=== PATIENT | female | born 1960 | race Caucasian/White ===

== ENCOUNTER 2017-05-12 16:18 | Emergency (ER) | payer OTHER ==
[~2017-05-12] VITALS: Ht 175.3 cm; Wt 110.9 kg
[~2017-05-12 16:18] MED LIST: ASPEC325 PO; BUPR-79 PO; CYAN100048 PO; DOCU1CAP60 PO; FIBER PO; FRS/40 PO; PANT1TAB48 PO; PRM9 PO
[2017-05-12 16:21] VITALS: TEMP 36.6; Ht 175.3 cm; Wt 110.9 kg
--- NOTE | 2017-05-12 17:39 | DIAGNOSTIC IMAGING REPORT ---
RIGHT SHOULDER MIN 2 VIEWS ROUTINE HISTORY: 57 years-old Female acute right shoulder pain. COMPARISON: Chest radiographs 12/31/2013 TECHNIQUE: 3 views of the right shoulder FINDINGS: Moderate AC joint degenerative changes are present. Mild glenohumeral osteoarthritis also noted. Subcortical cystic changes and mild spurring involves the greater tuberosity. Bones are mildly demineralized without acute fracture or dislocation. Imaged right lung wood are clear. IMPRESSION: 1. No acute fracture or dislocation. 2. Moderate AC joint and mild glenohumeral osteoarthritis. The above report was generated using voice recognition software. It may contain grammatical, syntax or spelling errors. Electronically signed by: Abdirizak Ludwig M.D. 05/12/2017 5:37 PM Dictated Date/Time: 05/12/2017 5:36 PM
--- NOTE | 2017-05-12 17:41 | DIAGNOSTIC IMAGING REPORT ---
C-SPINE ROUTINE 4 OR 5 VIEWS HISTORY: 57 years-old Female RIGHT CERVICAL RADICULOPATHY COMPARISON: None available TECHNIQUE: 5 views of the cervical spine. FINDINGS: 7 nonrib-bearing cervical type vertebral segments are present. There is mild intervertebral disc space narrowing posteriorly at C4-C5 and C5-C6 along with uncovertebral spurring and mild to moderate facet arthropathy. These changes result in mild bony foraminal narrowing bilaterally at C5-C6. The odontoid process and lateral pillars of C1 are intact. The lung apices are clear. No prevertebral soft tissue swelling or opaque foreign body. IMPRESSION: 1. No acute fracture or subluxation of the cervical spine. 2. Mild intervertebral disc space narrowing with uncovertebral spurring noted at C4-C5 and C5-C6. Multilevel dqbk-kr-cvjykoyj facet arthropathy. 3. Degenerative changes at C5-C6 result in mild bony neuroforaminal stenosis bilaterally. The above report was generated using voice recognition software. It may contain grammatical, syntax or spelling errors. Electronically signed by: Abdirizak Ludwig M.D. 05/12/2017 5:40 PM Dictated Date/Time: 05/12/2017 5:38 PM
[2017-05-12] MEDS ORDERED: ZNTT/150 PO (17:59)
[2017-05-12] MEDS ORDERED: MISCCAP80 PO (17:59)
[2017-05-12] MEDS ORDERED: PRM/625 PO (17:59)
[2017-05-12] MEDS ORDERED: ASPI81TA28 PO (17:59)
[2017-05-12] MEDS ORDERED: ADVIN25/60 INH (17:59)
[2017-05-12] MEDS ORDERED: WLLSR150 PO (17:59)
[2017-05-12] MEDS ORDERED: ETOD500T95 PO (17:59)
[2017-05-12] MEDS ORDERED: CYCL10TA6 PO (17:59)
[2017-05-12] MEDS ORDERED: PRVHFAIN INH (17:59)
[2017-05-12] MEDS ORDERED: CYAN1SUB6 SL (18:02)
[2017-05-12] MEDS ORDERED: HYDR-5688 PO (18:25)
[2017-05-12] MEDS ORDERED: METH4PAK PO (18:25)
--- NOTE | 2017-05-12 18:27 | EMERGENCY ROOM VISIT NOTE ---
ED Visit Note First contact with patient: 16:25 CHIEF COMPLAINT: Right arm pain 2-3 days History of present illness: Patient is a [id number] 57-year-old white female who presents to the emergency department for evaluation of right arm pain. She states that the pain started in her right upper arm as a deep, aching "burning" sensation. She describes it as feeling like she was punched in the upper arm. The pain has begun to radiate towards the right side of her neck, and down into her hand. She applied heat to the area, and is on etodolac chronically for arthritis, she did not take any additional medications for her discomfort. She denies any numbness, tingling, or paresthesias in the arm and, but does state that she feels a little bit weak. She admits she had a hard time opening a jar the other day. She denies any trauma to the area, no heavy lifting or unusual activity prior to the onset of her symptoms. The pain is constant and unrelated to position changes. She denies any recent injections, blood draws or IV access in the right arm. She denies noticing any swelling or discoloration. She rates her discomfort a 7/10 presently. She does not have any associated chest pain, shortness of breath, back pain or palpitations. She has no symptoms in the left arm. REVIEW OF SYSTEMS: Review of systems as per HPI. All other systems reviewed were negative. 10 systems reviewed. PMH: Electronic medical records are reviewed and summarized as above/below. See Problem List. SOCIAL HISTORY: Patient lives at home. Nonsmoker. She is a housewife. PHYSICAL EXAM: Vital Signs: Reviewed Nurse's notes. MENTAL STATUS: Patient is a pleasant, well-appearing 57-year-old white female who is awake and alert and in no acute distress. HEENT: Normocephalic, atraumatic. Pupils equal, round, reactive to light and accommodation. EOMs intact without nystagmus. Sclera are anicteric. Tympanic membranes intact, with normal landmarks. External canals are clear. Oral and nasopharynx are clear. Mucous membranes are moist. NECK: The patient has no discomfort to palpation over the spinous processes of the cervical or the upper thoracic spine. No reproducible paraspinous muscle tenderness. She does have some point tenderness in the midportion of the right trapezius. Full cervical spine range of motion without discomfort. CHEST: Non-tender, symmetrical, no retractions. HEART: Regularly irregular rhythm. LUNGS: Clear to auscultation. MUSCULOSKELETAL: Examination of the right upper extremity does not demonstrate any ecchymosis, soft tissue swelling or erythema. There is no reproducible tenderness on palpation of the musculature or soft tissue of the upper arm. She does not have the pain really proximal biceps tendon or the rotator cuff insertion. She has full shoulder range of motion, and 5/5 strength. Elbow is nontender to palpation. Elbow range of motion is full. Distal pulses are easily palpable. NEUROLOGICAL: Alert, oriented, and cooperative. Cranial nerves, sensation and strength grossly intact. Upper extremity DTRs are equal and symmetrical bilaterally. EMERGENCY DEPARTMENT COURSE: The patient was seen and evaluated as above. She reports pain in her right upper arm that radiates into her right neck and down her arm, with some subjective weakness. Symptoms appear more consistent with either shoulder or C-spine pathology. Cervical spine and right shoulder x-rays were obtained. Shoulder x-ray noted minor arthritic changes, she has moderate degenerative changes noted throughout the cervical spine, which I suspect is the source of her symptoms. She does not have any erythema, increased warmth or induration to suspect an infectious process such as cellulitis. History does not appear consistent with DVT or superficial thrombophlebitis. Pain is more consistent with a musculoskeletal etiology, not felt to be cardiac or pulmonary in nature. Patient is on NSAIDs chronically for her generalized arthritis. She was agreeable to a short course of an oral steroid and was placed on a Medrol Dosepak. She will stop her he told back while taking the Medrol Dosepak. She was also given prescription for [place] that she can use. She has Flexeril at home. She is established with [facility] and is actually seen pain management there, Dr. James, for her lumbar spine in the past. She may require further workup including a C-spine MRI. She was advised to follow-up with her PCP or with [facility] for further care and evaluation. Medication reconciliation: I attest that I have personally reviewed the patient' s current medication list. Blood pressure screening : Patient was found to have normal blood pressure on screening and does not require follow-up. Patient was reviewed in the [facility] Prescription Drug Monitoring Program, and there were no red flags noted. C-SPINE ROUTINE 4 OR 5 VIEWS HISTORY: 57 years-old Female RIGHT CERVICAL RADICULOPATHY COMPARISON: None available TECHNIQUE: 5 views of the cervical spine. FINDINGS: 7 nonrib-bearing cervical type vertebral segments are present. There is mild intervertebral disc space narrowing posteriorly at C4-C5 and C5-C6 along with uncovertebral spurring and mild to moderate facet arthropathy. These changes result in mild bony foraminal narrowing bilaterally at C5-C6. The odontoid process and lateral pillars of C1 are intact. The lung apices are clear. No prevertebral soft tissue swelling or opaque foreign body. IMPRESSION: 1. No acute fracture or subluxation of the cervical spine. 2. Mild intervertebral disc space narrowing with uncovertebral spurring noted at C4-C5 and C5-C6. Multilevel gasy-qy-vrpxfvav facet arthropathy. 3. Degenerative changes at C5-C6 result in mild bony neuroforaminal stenosis bilaterally. RIGHT SHOULDER MIN 2 VIEWS ROUTINE HISTORY: 57 years-old Female acute right shoulder pain. COMPARISON: Chest radiographs 12/31/2013 TECHNIQUE: 3 views of the right shoulder FINDINGS: Moderate AC joint degenerative changes are present. Mild glenohumeral osteoarthritis also noted. Subcortical cystic changes and mild spurring involves the greater tuberosity. Bones are mildly demineralized without acute fracture or dislocation. Imaged right lung wood are clear. IMPRESSION: 1. No acute fracture or dislocation. 2. Moderate AC joint and mild glenohumeral osteoarthritis. Problem List Medical Problems: (1) Anxiety State Nos Status: Chronic (2) Esophageal Reflux Status: Chronic (3) Osteoarthritis Status: Chronic (4) Right knee DJD Status: Resolved Surgical Problems: (1) History of cholecystectomy Status: Resolved (2) History of hysterectomy Status: Resolved (3) History of lumpectomy of both breasts Status: Resolved (4) History of total knee arthroplasty Status: Resolved Current/Historical Medications Scheduled Aspirin (Aspirin Ec), 81 MG PO DAILY Bupropion HCl (Bupropion HCl Sr), 150 MG PO BID Cyanocobalamin (B-12), 2,500 MCG SL DAILY Estrogens, Conjugated (Premarin), 0.625 MG PO DAILY Etodolac (Etodolac), 500 MG PO BID Fluticasone Prop/Salmeterol (Advair Diskus 250/50 60 Dose), 1 PUFF INH BID Furosemide (Lasix), 40 MG PO QAM Methylprednisolone (Medrol Dosepak), 0 PO DAILY Pantoprazole (Protonix), 40 MG PO QAM Probiotic Product (Probiotic), 1 CAP PO DAILY Ranitidine (Zantac), 150 MG PO HS Scheduled PRN Albuterol (Ventolin Hfa), 2 PUFFS INH Q4H PRN for SOB/Wheezing Cyclobenzaprine Hcl (Flexeril), 10 MG PO TID PRN for Muscle Spasm Hydrocodone/Acetaminophen 5MG/325MG ([place] 5MG/325MG), 1-2 TABLETS PO Q4 PRN for Pain Allergies Coded Allergies: SHELLFISH (Unverified Allergy, Mild, FLUSHING, 12/31/13) Eggs or Egg-derived Products (Unverified Adverse Reaction, Mild, FLUSHING , can eat eggs--no reaction per pt, 01/27/14) Vital Signs Date Time Temp Pulse Resp B/P (MAP) Pulse Ox O2 Delivery O2 Flow Rate FiO2 05/12/17 18:44 59 17 129/91 97 05/12/17 17:49 59 17 129/91 97 Room Air 05/12/17 16:21 36.6 73 18 154/99 100 Room Air Medications Administered Medications (Trade) Dose Ordered Sig/Otilio Route Start Time Stop Time Status Last Admin Dose Admin Acetaminophen/ Hydrocodone Bitart ([place] 5/325mg Home Pack) 1 homepack UD ONCE PO 05/12/17 18:30 05/12/17 18:31 DC 05/12/17 18:41 1 HOMEPACK Departure Information Impression Primary Impression: Degenerative disc disease, cervical Additional Impression: Right cervical radiculopathy Prescriptions Methylprednisolone (MEDROL DOSEPAK) 4 Mg Toi 0 PO DAILY, #1 PKT Once daily as directed. Prov: Cha Rodas PA 05/12/17 Hydrocodone/Acetaminophen 5MG/325MG ([place] 5MG/325MG) Tab 1-2 TABLETS PO Q4 Y for Pain, #20 TAB For Initial Treatment Prov: Cha Rodas PA 05/12/17 Referrals Kenneth Rhodes D.O. (PCP) Patient Instructions My [facility] Additional Instructions Medrol Dosepak: Once daily until the prescription is finished. It is best to take this earlier in the day as some patients note occasional difficulty falling asleep when taken in the late evening. Stop etodolac while taking the Medrol Dosepak. Hydrocodone/Acetaminophen ([place]) 5/325 mg: Take 1-2 pills every four hours for breakthrough pain. Avoid alcohol, operating machinery or dangerous equipment, working on ladders or roofs, DRIVING, or situations where being under the influence may be dangerous. It is recommended to use an yxdo-fon-pfxayjn stool softener such as Colace, 100mg twice daily while taking this medication to avoid constipation. May use your Flexeril as needed. Rest and avoid heavy lifting until your symptoms resolve and then gradually return to full activity. A good rule of thumb is if it hurts you to perform a certain activity, then it should be avoided until you are healthy again. A heating pad, warm compresses, or a hot shower may help with tight muscles and can be done several times a day as needed. Continue current medications. Return to the ER immediately for any numbness, tingling, severe pain, loss of control of your bowels or bladder, inability to walk, or as needed. Follow up with your primary care physician or orthopedics for further care and evaluation of your symptoms. Problem Qualifiers
[2017-05-12] MEDS ORDERED: NORCO 5/325MG HOME PACK PO ONE (18:30)
[2017-05-12 18:44] VITALS: BP 129/91; PULSE 59; O2SAT 97
== END 2017-05-12 18:44 | disposition home or self-care (01) ==
LOC: C.EDB 16:20 → C.EDA 18:44
DX: M50.30 Other cervical disc degeneration, unspecified cervical region (principal); M54.12 Radiculopathy, cervical region; F41.9 Anxiety disorder, unspecified; K21.9 Gastro-esophageal reflux disease without esophagitis; M19.90 Unspecified osteoarthritis, unspecified site; Z96.651 Presence of right artificial knee joint; Z79.82 Long term (current) use of aspirin; Z79.899 Other long term (current) drug therapy

== ENCOUNTER 2017-05-16 16:14 | Emergency (ER) | payer OTHER ==
[~2017-05-16] VITALS: Ht 175.3 cm; Wt 111.0 kg
[~2017-05-16 16:14] MED LIST changes: +ADVIN25/60 INH; -ASPEC325 PO; +ASPI81TA28 PO; -BUPR-79 PO; -CYAN100048 PO; +CYAN1SUB6 SL; +CYCL10TA6 PO; -DOCU1CAP60 PO; +ETOD500T95 PO; -FIBER PO; +HYDR-5688 PO; +METH4PAK PO; +MISCCAP80 PO; +PRM/625 PO; -PRM9 PO; +PRVHFAIN INH; +WLLSR150 PO; +ZNTT/150 PO
[2017-05-16 16:27] VITALS: TEMP 36.7; Ht 175.3 cm; Wt 111.0 kg
[2017-05-16] MEDS ORDERED: HYDR-5688 PO (17:21)
[2017-05-16 17:31] VITALS: BP 145/96; PULSE 73; O2SAT 96
--- NOTE | 2017-05-16 18:08 | EMERGENCY ROOM VISIT NOTE ---
History First contact with patient: 16:37 Chief Complaint: ARM PAIN Stated Complaint: RT ARM AND SHOULDER PAIN History of Present Illness The patient is a 57 year old female who presents to the Emergency Room for a second opinion related to a rash extending from her right upper shoulder down her right arm. She was seen by her PCP earlier today and diagnosed with herpes zoster. She was provided a prescription for famciclovir. The patient reports that she was in the emergency department 4 days ago and diagnosed with a cervical radiculopathy. She reports that her was putting a lot of capsacin cream on the shoulder and arm, and wanted to make sure that it was not a reaction or burn from the cream. The patient reports that the pain is significant. She only has a few pain medications left from her prescription from the emergency department. Her family doctor did not provide her a prescription for pain medicine. She does report a childhood history of chickenpox. She denies any paresthesias or numbness of the right hand or fingers. She currently rates her discomfort a 9 out of 10. Review of Systems 10 system review was performed and was negative except for pertinent positives and negatives as indicated in history of present illness Past Medical/Surgical History Medical Problems: (1) Anxiety State Nos (2) Esophageal Reflux (3) Osteoarthritis (4) Right knee DJD Surgical Problems: (1) History of cholecystectomy (2) History of hysterectomy (3) History of lumpectomy of both breasts (4) History of total knee arthroplasty Family History Unremarkable Social History Smoking Status: Never Smoker Alcohol Use: none Marital Status: Housing Status: lives with family Occupation Status: employed Current/Historical Medications Scheduled Aspirin (Aspirin Ec), 81 MG PO DAILY Bupropion HCl (Bupropion HCl Sr), 150 MG PO BID Cyanocobalamin (B-12), 2,500 MCG SL DAILY Estrogens, Conjugated (Premarin), 0.625 MG PO DAILY Etodolac (Etodolac), 500 MG PO BID Fluticasone Prop/Salmeterol (Advair Diskus 250/50 60 Dose), 1 PUFF INH BID Furosemide (Lasix), 40 MG PO QAM Methylprednisolone (Medrol Dosepak), 0 PO DAILY Pantoprazole (Protonix), 40 MG PO QAM Probiotic Product (Probiotic), 1 CAP PO DAILY Ranitidine (Zantac), 150 MG PO HS Scheduled PRN Albuterol (Ventolin Hfa), 2 PUFFS INH Q4H PRN for SOB/Wheezing Cyclobenzaprine Hcl (Flexeril), 10 MG PO TID PRN for Muscle Spasm Hydrocodone/Acetaminophen 5MG/325MG ([place] 5MG/325MG), 1-2 TABLETS PO Q4 PRN for Pain Hydrocodone/Acetaminophen 5MG/325MG ([place] 5MG/325MG), 1-2 TABLET PO Q4H PRN for Pain Physical Exam Vital Signs Date Time Temp Pulse Resp B/P (MAP) Pulse Ox O2 Delivery O2 Flow Rate FiO2 05/16/17 17:31 73 16 145/96 96 05/16/17 16:27 36.7 73 16 145/96 96 Pain Rating (0-10): 0 Physical Exam CONSTITUTIONAL: Healthy and well nourished. Alert and oriented X 3 with positive affect. Patient does not appear in any obvious distress. HEENT: Normocephalic, atraumatic. Pupils equal, round and reactive. No facial edema or erythema noted. NECK: Patient has mild right neck and shoulder discomfort with left lateral gaze. No nuchal rigidity or erythema of the neck area and RESPIRATORY: Clear to auscultation bilaterally with no wheezing, crackles, rhonchi or stridor. CARDIOVASCULAR: Regular rate and rhythm with no murmurs, rubs or gallops. GASTROINTESTINAL: Bowel sounds present in all quadrants. Nontender to palpation. MUSCULOSKELETAL: Patient has full range of motion of the right shoulder, elbow and wrist without discomfort. Distal pulses are intact. INTEGUMENTARY: The patient has a grouped erythematous and mildly vesicular lesion from the right upper shoulder region, down the anterolateral upper arm and anterior forearm. There is no induration. NEUROLOGIC: No focal neurologic deficits noted. Right hand and fingers are sensory intact. Medical Decision & Procedures ED Course Patient history and physical exam were performed. Nurse's notes were reviewed. Vital signs were reviewed, showing an elevated blood pressure 145/96. I also reviewed documentation from the patient's visit 5 days ago. The patient was referred to Dr. James for further reevaluation of possible right cervical radiculitis. It is now apparent that the patient's pain was likely being caused by herpes zoster. I explained to the patient that clinical exam findings are consistent with herpes zoster. She was instructed to take the famciclovir as prescribed by her PCP. It is also noted that she was provided a prescription on Saturday for a corticosteroid, which she may also take. The patient was provided an additional prescription for [place] as needed for pain. The patient was advised that she would need to discuss further pain management with her PCP. The patient reports that she does have an appointment rescheduled in 7 days. An educational handout was provided. She was instructed to avoid anyone with immunocompromise or . The patient was happy with plan of care, and voiced understanding of all discharge instructions , rating her pain a 5 out of 10 at the conclusion of my exam. Medical Decision Impression Primary Impression: Herpes zoster Departure Information Dispostion Home / Self-Care Condition GOOD Prescriptions Hydrocodone/Acetaminophen 5MG/325MG ([place] 5MG/325MG) Tab 1-2 TABLET PO Q4H Y for Pain, #36 TAB For Initial Treatment Prov: Cody Weems PA 05/16/17 Forms HOME CARE DOCUMENTATION FORM, IMPORTANT VISIT INFORMATION Patient Instructions Shingles Herpes Zoster, My [facility] Additional Instructions We agree with your PCP's assessment of shingles. Take the famciclovir as prescribed. Continue with hydrocodone as needed for pain. Avoid anyone with a weakened immune system or women. Follow-up with your family doctor as needed for further pain management. Problem Qualifiers Primary Impression: Herpes zoster Herpes zoster complications: with other complications Qualified Codes: B02.8 - Zoster with other complications
== END 2017-05-16 17:31 | disposition home or self-care (01) ==
LOC: C.EDB 16:15 → C.EDD 17:31
DX: B02.8 Zoster with other complications (principal); M19.90 Unspecified osteoarthritis, unspecified site; F41.9 Anxiety disorder, unspecified; K21.9 Gastro-esophageal reflux disease without esophagitis; Z79.82 Long term (current) use of aspirin; Z79.899 Other long term (current) drug therapy

== ENCOUNTER 2020-06-22 08:10 | Observation (INO) ==
--- NOTE | 2020-06-07 15:30 | PAT Medication Instructions ---
Medication Instructions Date of Service June 07, 2020 Home Medications albuterol sulfate [Ventolin HFA] 2 puff INHALATION 6XD PRN aspirin 81 mg PO QAM bupropion HCl 150 mg PO BID celecoxib [Celebrex] 200 mg PO BID cholecalciferol (vitamin D3) [Vitamin D3] 125 mcg PO QAM conjugated estrogens [Premarin] 0.625 mg PO QAM cyanocobalamin (vitamin B-12) [Vitamin B-12] 500 mcg PO QAM famotidine 40 mg PO HS lactobacillus combination no.4 [Probiotic] 3,000 mmu cells PO QAM pantoprazole 40 mg PO QAM torsemide 20 mg PO QAM ASK your surgeon for instructions celecoxib [Celebrex] 200 mg PO BID DO NOT take the morning of surgery cholecalciferol (vitamin D3) [Vitamin D3] 125 mcg PO QAM conjugated estrogens [Premarin] 0.625 mg PO QAM (unless surgeon instructs that med needs held longer) cyanocobalamin (vitamin B-12) [Vitamin B-12] 500 mcg PO QAM lactobacillus combination no.4 [Probiotic] 3,000 mmu cells PO QAM torsemide 20 mg PO QAM Take morning of surgery With a small sip of water, OTHERWISE NOTHING TO EAT OR DRINK AFTER MIDNIGHT: albuterol sulfate [Ventolin HFA] 2 puff INHALATION 6XD PRN (use if needed; please bring with you to hospital day of surgery if possible) aspirin 81 mg PO QAM bupropion HCl 150 mg PO BID pantoprazole 40 mg PO QAM Take evening before surgery albuterol sulfate [Ventolin HFA] 2 puff INHALATION 6XD PRN (if needed) bupropion HCl 150 mg PO BID famotidine 40 mg PO HS Other Notes If you have any questions please call us at [phone] or [phone] or [phone] or [phone]
--- NOTE | 2020-06-08 12:05 | Anesthesiology Consultation ---
Date of Service June 08, 2020 Assessment & Plan (1) Encounter for pre-operative examination: COVID Status: As of 06/08 assessment, patient denies travel to endemic area, known exposure/sick contacts, or symptoms of COVID19. Patient instructed that they and their household members must follow strict social distancing guidelines, wear a mask in public and avoid travel for 14 days prior to surgery. Preoperative COVID19 testing to be completed prior to surgery per surgeon's a rrangements. Patient made aware to self-isolate as much as possible between COVID testing and surgery. Chart Review Chart Review: Acceptable Risk for Surgery (pending surgeon ordered PCP and cardio clearances (also to have echo 06/10 per pt)) and Patient seen in Pre Admission Testing Teaching & Discussion Instructed NPO after midnight before surgery, except medications with 15 cc of water. Medication instructions provided according to the PAT guidelines. History Surgery Operation Date: 06/22/20 12:40 Proposed Procedures p Left Total Knee Arthroplasty - Torito Mendoza DO Height/Weight Height: 5 ft 9 in Weight: 107.5 kg Allergies Allergy/AdvReac Type Severity Reaction Status Date / Time meloxicam [From Mobic] Allergy Mild retain Verified 06/07/20 07:37 fluid swelling shellfish derived Allergy Mild FLUSHING Unverified 06/07/20 07:34 Egg Derived AdvReac Mild FLUSHING, Unverified 06/07/20 07:34 can eat eggs--no reaction per pt elderberry pills Allergy Mild made her Uncoded 06/07/20 07:37 "go crazy" pain pill Allergy Mild she cant Uncoded 06/07/20 07:37 remember name Medications Home Medications Medication Instructions Recorded Confirmed Last Taken albuterol sulfate [Ventolin HFA] 2 puff INHALATION 6XD PRN 06/07/20 06/07/20 Unknown aspirin 81 mg PO QAM 06/07/20 06/07/20 Unknown bupropion HCl 150 mg PO BID 06/07/20 06/07/20 Unknown celecoxib [Celebrex] 200 mg PO BID 06/07/20 06/07/20 Unknown cholecalciferol (vitamin D3) 125 mcg PO QAM 06/07/20 06/07/20 Unknown [Vitamin D3] conjugated estrogens [Premarin] 0.625 mg PO QAM 06/07/20 06/07/20 Unknown cyanocobalamin (vitamin B-12) 500 mcg PO QAM 06/07/20 06/07/20 Unknown [Vitamin B-12] famotidine 40 mg PO HS 06/07/20 06/07/20 Unknown lactobacillus combination no.4 3,000 mmu cells PO QAM 06/07/20 06/07/20 Unknown [Probiotic] pantoprazole 40 mg PO QAM 06/07/20 06/07/20 Unknown torsemide 20 mg PO QAM 06/07/20 06/07/20 Unknown Past Medical History Medical History (Updated 06/08/20 @ 12:14 by Ranjith Pagan) Anxiety Asthma Bicuspid aortic valve Monitored yearly by Dr. Stone Diverticular disease GERD (gastroesophageal reflux disease) Osteoarthritis PONV (postoperative nausea and vomiting) Exercise / Class Metabolic Activity II 4-5 Yardwork/Stairs/Walk up hill (NO CP or OSB with 1 FOS, just slow bc of knee pain) Past Surgical History Surgical History History of lumpectomy of both breasts History of total right knee replacement Hx of arthroscopy of shoulder right and left Hx of colonoscopy Hx of foot surgery right foot tendon repair Hx of hand surgery right and left with tendons Hx of hemorrhoidectomy Hx of hysterectomy Hx of left inguinal hernia repair Past Anesthesia History No Hx of Anesthesia Complications and No Family Hx of Anesthesia Complications Egg allergy noted, "flushing" but patient reports she eats eggs anyway, and propofol was used during 2013 TKA. History of PONV No Hx of Motion Sickness and History of PONV (occasional nausea) Social History Smoking Status: Never smoker Do You Dip or Chew Tobacco: No Hx Alcohol Use: No Hx Substance Use: No substance use type: does not use Review of Systems Pt denies any recent chest pain, shortness of breath, palpitations, cough, fever, URI, or acid reflux (controlled with meds). Physical Exam Vital Signs BP: 143/79 P: 67bpm SPO2: 96% RA T: 98.4 F R: 16 ENMT Mouth: + dentures (upper only) and + edentulous Thyromental Distance: < 3.5 Finger Breadths (3) Mallampati Class: I Neck normal visual inspection; neck extension not limited Respiratory normal respiratory effort Auscultation: lungs clear to auscultation bilaterally Cardiovascular Rate/Rhythm: regular rate and regular rhythm Heart Sounds: no murmur Extremities: + edema (B/L nonpitting) Testing Laboratory Results 06/08/20 12:18 06/08/20 12:18 PT 10.4 Seconds (9.0-12.0) 06/08/20 12:18 INR 1.0 (0.9-1.1) 06/08/20 12:18 APTT 25.8 Seconds (21.0-31.0) 06/08/20 12:18 Hemoglobin A1c 5.2 % (4.5-5.6) 06/08/20 12:18 Urine Color Yellow 06/08/20 12:18 Urine Appearance Clear (Clear) 06/08/20 12:18 Urine pH 5.5 (4.5-7.5) 06/08/20 12:18 Ur Specific [place] 1.014 (1.000-1.030) 06/08/20 12:18 Urine Protein Negative (Negative) 06/08/20 12:18 Urine Glucose (UA) Negative (Negative) 06/08/20 12:18 Urine Ketones Negative (Negative) 06/08/20 12:18 Urine Nitrite Negative (Negative) 06/08/20 12:18 Ur Leukocyte Esterase Negative (Negative) 06/08/20 12:18 Blood Type O Positive 06/08/20 12:18 Antibody Screen NEGATIVE 06/08/20 12:18 *Surgeons office flagged regarding low white count Electrocardiogram Date: 04/29/20 Findings: + SB @ (57bpm) Low voltage. Chest X-Ray Date: 06/08/20 Findings: + NAD Echocardiogram Date: 02/11/19 EF: 55-60% Normal LV size and systolic function. Normal right ventricular size and function. Bicuspid aortic valve with mild regurgitation. The aortic valve area is 2.5 cm and the mean gradient is 4 mmHg. No tricuspid regurgitant spectral velocity was obtainable for estimating PASP. Mildly dilated aortic root. There is impaired relaxation pattern consistent with diastolic dysfunction grade 1.
--- NOTE | 2020-06-08 12:47 | XRay Report ---
XR chest Pre-admission PA/Lat CLINICAL HISTORY: Preoperative evaluation. COMPARISON STUDY: Chest radiograph December 31, 2013. FINDINGS: Lung volumes are at the upper limits of normal. Lungs are clear. There is no pneumothorax o r pleural effusion. Cardiac size is normal. Mediastinal contours are normal. There is no evidence for pulmonary edema. Incidental note is made of an azygos fissure. IMPRESSION: No acute cardiopulmonary findings. ACT 112: Negative or not required by law. Electronically signed by: Les Landaverde M.D. 06/08/2020 12:45 PM
[2020-06-08 12:53] LABS: Hematocrit (blood only) 42.7 % (37-47); Hemoglobin 13.6 g/dL (12.0-16.0); Mean Corpuscular Hemoglobin 28.7 pg (25-34); Mean Corpuscular Hgb Conc 31.9 g/dL (32-36); Mean Corpuscular Volume 90.1 fL (80-100); RDW Standard Deviation 47.6 fL (36.4-46.3); Red Blood Count 4.74 M/uL (4.2-5.4)
[2020-06-08 12:54] LABS: Basophils # (auto) 0.05 K/uL (0-0.2); Basophils % (auto) 1.3 %; Eosinophils # (auto) 0.11 K/uL (0-0.5); Eosinophils % (auto) 2.9 %; Immature Granulocytes # (auto) 0.01 K/uL (0.00-0.02); Immature Granulocytes % (auto) 0.3 %; Lymphocytes # (auto) 1.09 K/uL (1.2-3.4); Lymphocytes % (auto) 28.7 %; Mean Platelet Volume 10.7 fL (7.4-10.4); Monocytes # (auto) 0.43 K/uL (0.11-0.59); Monocytes % (auto) 11.3 %; Neutrophils # (auto) 2.11 K/uL (1.4-6.5); Neutrophils % (auto) 55.5 %; Platelet Count 197 K/uL (130-400); RDW Coefficient of Variation 14.5 % (11.5-14.5)
[2020-06-08 12:56] LABS: Appearance Urine Clear (Clear); Bilirubin Urine Negative (Negative); Blood Urine Negative (Negative); Color Urine Yellow; Glucose Urine UA Negative (Negative); Ketones Urine Negative (Negative); Leukocyte Esterase Urine Negative (Negative); Nitrite Urine Negative (Negative); Protein Urine Negative (Negative); Specific Gravity Urine 1.014 (1.000-1.030); Urobilinogen Urine Negative (Negative); pH Urine 5.5 (4.5-7.5)
[2020-06-08 13:09] LABS: Estimated Average Glucose 103 mg/dl; Hemoglobin A1C 5.2 % (4.5-5.6); Partial Thromboplastin Ratio 0.9; Partial Thromboplastin Time 25.8 Seconds (21.0-31.0); Prothrombin Time 10.4 Seconds (9.0-12.0)
[2020-06-08 14:19] LABS: Albumin Level 3.4 gm/dl (3.4-5.0); BUN Creatinine Ratio 14.8 (10-20); Calcium 9.2 mg/dl (8.5-10.1); Creatinine Clr Calc Pharmacy 73.2 ml/min; Est GFR (African American) 66.7; Est GFR (Non-African American) 57.5; Potassium 3.7 mmol/L (3.5-5.1)
--- NOTE | 2020-06-09 11:41 | History & Physical Report ---
Date of Service June 09, 2020 date of surgery: 06/22/20 procedure: Left Total Knee Arthroplasty Assessment & Plan (1) Arthritis of knee, left: She has continued pain in her left knee, has had previous cortisone injections as well as visco without relief. risks and benefits discussed today, she would like to proceed with a block left TKA at [facility]. The risks and benefits have been discussed including, but not limited to, risk of infection, nerve injury, stiffness, loss of motion, failure to improve, etc. Reasonable outcomes and options of treatment were discussed. An explanation of appropriate alternatives to the procedure that may be advantageous were discussed and their risks and benefits, as well as the risks and benefits of not proceeding with treatment. I offered to answer any additional inquiries concerning the treatment involved. All the patient's questions were answered. The patient is agreeable, understanding of the treatment plan and alternatives, and wishes to proceed with the treatment plan. History of Present Illness Chief Complaint: left knee pain Primary Care Provider: Kenneth Rhodes DO Gabbie is a 60 year old female who complains of left knee pain, presents for pre-op evaluation prior to a left total knee replacement by dr Mendoza at [facility]. She complains of pain and decreased range of motion in her left knee. she states that her symptoms occur constantly with intermittent worsening. Currently the patient states that the symptoms are moderate-severe. The pain is described as aching, sharp and throbbing. her symptoms are aggravated by ascending stairs, daily activities, first steps while awake walking. Prior NSAIDs include IBU, Aleve and Mobic, had adverse rxn to Mobic. she has been treated with previous cortisone and visco injections in the past without much relief. Allergies Allergy/AdvReac Type Severity Reaction Status Date / Time meloxicam [From Mobic] Allergy Mild retain Verified 06/07/20 07:37 fluid swelling shellfish derived Allergy Mild FLUSHING Unverified 06/07/20 07:34 Egg Derived AdvReac Mild FLUSHING, Unverified 06/07/20 07:34 can eat eggs--no reaction per pt elderberry pills Allergy Mild made her Uncoded 06/07/20 07:37 "go crazy" pain pill Allergy Mild she cant Uncoded 06/07/20 07:37 remember name Home Medications Home Medications Medication Instructions Recorded Confirmed Type albuterol sulfate [Ventolin HFA] 2 puff INHALATION 6XD PRN 06/07/20 06/07/20 History aspirin 81 mg PO QAM 06/07/20 06/07/20 History bupropion HCl 150 mg PO BID 06/07/20 06/07/20 History celecoxib [Celebrex] 200 mg PO BID 06/07/20 06/07/20 History cholecalciferol (vitamin D3) 125 mcg PO QAM 06/07/20 06/07/20 History [Vitamin D3] conjugated estrogens [Premarin] 0.625 mg PO QAM 06/07/20 06/07/20 History cyanocobalamin (vitamin B-12) 500 mcg PO QAM 06/07/20 06/07/20 History [Vitamin B-12] famotidine 40 mg PO HS 06/07/20 06/07/20 History lactobacillus combination no.4 3,000 mmu cells PO QAM 06/07/20 06/07/20 History [Probiotic] pantoprazole 40 mg PO QAM 06/07/20 06/07/20 History torsemide 20 mg PO QAM 06/07/20 06/07/20 History Past Med/Surg History Medical History Anxiety Asthma Bicuspid aortic valve Monitored yearly by Dr. Stone Diverticular disease GERD (gastroesophageal reflux disease) Osteoarthritis PONV (postoperative nausea and vomiting) Surgical History History of lumpectomy of both breasts History of total right knee replacement Hx of arthroscopy of shoulder right and left Hx of colonoscopy Hx of foot surgery right foot tendon repair Hx of hand surgery right and left with tendons Hx of hemorrhoidectomy Hx of hysterectomy Hx of left inguinal hernia repair Social History Smoking Status: Never smoker Second Hand Exposure: No; Do You Dip or Chew Tobacco: No; Tobacco Cessation Education Requested by Patient: No Hx Alcohol Use: No Hx Substance Use: No Preferred Language: Pashto Communication Ability: Effective Learning Support Resource Room Teacher Required: No Beliefs That Will Affect Care: None Current Living Situation: Spouse Other Information That Helps Us Care for You: No Feels Safe at Home: Yes Safety Concerns: Feels Safe At This Time Assistive Devices: Denture - Upper and Glasses Review of Systems Review of Systems: All systems reviewed & are unremarkable except as noted in HPI & below Constitutional: no fever, no chills and no sweats Respiratory: no cough and no dyspnea Cardiovascular: no chest pain, no dyspnea and no orthopnea Gastrointestinal: no abdominal pain, no nausea and no vomiting Musculoskeletal: as per Subjective / HPI Physical Exam Physical Exam: HT: 5ft 9in Wt: 107.5kg BP: 128/68 Constitutional: WD/WN, vitals as above no acute distress Respiratory: normal respiratory effort, lungs clear to auscultation no respiratory distress, no labored breathing and does not use accessory muscles Cardiovascular: RRR, no murmur, no edema Gastrointestinal (Abdomen): normal bowel sounds, soft, nontender, no hepatosplenomegaly Musculoskeletal: Knee: + knee abnormal to inspection (left knee), + effusion (+1 effusion), + limited ROM of knee (ROM 0/3/110), + knee ROM with crepitation, + joint line tenderness (medial joint line) and + Lottie's sign positive; no deformity, no skin erythema, no ecchymosis, no valgus laxity, no varus laxity, anterior drawer test negative, Fredy's sign negative and pivot shift test ne gative Results & Data Results & Data ([facility]) Laboratory Results Laboratory Results WBC 3.80 K/uL (4.8-10.8) L 06/08/20 12:18 RBC 4.74 M/uL (4.2-5.4) 06/08/20 12:18 Hgb 13.6 g/dL (12.0-16.0) 06/08/20 12:18 Hct 42.7 % (37-47) 06/08/20 12:18 MCV 90.1 fL (80-100) 06/08/20 12:18 MCH 28.7 pg (25-34) 06/08/20 12:18 MCHC 31.9 g/dL (32-36) L 06/08/20 12:18 RDW Std Deviation 47.6 fL (36.4-46.3) H 06/08/20 12:18 RDW Coeff of Rhett 14.5 % (11.5-14.5) 06/08/20 12:18 Plt Count 197 K/uL (130-400) 06/08/20 12:18 MPV 10.7 fL (7.4-10.4) H 06/08/20 12:18 Immature Gran % (Auto) 0.3 % 06/08/20 12:18 Neut % (Auto) 55.5 % 06/08/20 12:18 Lymph % (Auto) 28.7 % 06/08/20 12:18 Faulk % (Auto) 11.3 % 06/08/20 12:18 Eos % (Auto) 2.9 % 06/08/20 12:18 Baso % (Auto) 1.3 % 06/08/20 12:18 Neut # (Auto) 2.11 K/uL (1.4-6.5) 06/08/20 12:18 Lymph # (Auto) 1.09 K/uL (1.2-3.4) L 06/08/20 12:18 Faulk # (Auto) 0.43 K/uL (0.11-0.59) 06/08/20 12:18 Eos # (Auto) 0.11 K/uL (0-0.5) 06/08/20 12:18 Baso # (Auto) 0.05 K/uL (0-0.2) 06/08/20 12:18 Immature Gran # (Auto) 0.01 K/uL (0.00-0.02) 06/08/20 12:18 PT 10.4 Seconds (9.0-12.0) 06/08/20 12:18 INR 1.0 (0.9-1.1) 06/08/20 12:18 APTT 25.8 Seconds (21.0-31.0) 06/08/20 12:18 PTT Ratio 0.9 06/08/20 12:18 Sodium 141 mmol/L (136-145) 06/08/20 12:18 Potassium 3.7 mmol/L (3.5-5.1) 06/08/20 12:18 Chloride 105 mmol/L (98-107) 06/08/20 12:18 Carbon Dioxide 29 mmol/L (21-32) 06/08/20 12:18 Anion Gap 7.0 (3-11) 06/08/20 12:18 BUN 15 mg/dl (7-18) 06/08/20 12:18 Creatinine 1.04 mg/dl (0.6-1.2) 06/08/20 12:18 Est Cr Clr Drug Dosing 73.2 ml/min 06/08/20 12:18 Est GFR ( Amer) 66.7 06/08/20 12:18 Est GFR (Non-Af Amer) 57.5 06/08/20 12:18 BUN/Creatinine Ratio 14.8 (10-20) 06/08/20 12:18 Glucose 91 mg/dl (70-99) 06/08/20 12:18 Estimat Average Glucose 103 mg/dl 06/08/20 12:18 Hemoglobin A1c 5.2 % (4.5-5.6) 06/08/20 12:18 Calcium 9.2 mg/dl (8.5-10.1) 06/08/20 12:18 Albumin 3.4 gm/dl (3.4-5.0) 06/08/20 12:18 Urine Color Yellow 06/08/20 12:18 Urine Appearance Clear (Clear) 06/08/20 12:18 Urine pH 5.5 (4.5-7.5) 06/08/20 12:18 Ur Specific [place] 1.014 (1.000-1.030) 06/08/20 12:18 Urine Protein Negative (Negative) 06/08/20 12:18 Urine Glucose (UA) Negative (Negative) 06/08/20 12:18 Urine Ketones Negative (Negative) 06/08/20 12:18 Urine Blood Negative (Negative) 06/08/20 12:18 Urine Nitrite Negative (Negative) 06/08/20 12:18 Urine Bilirubin Negative (Negative) 06/08/20 12:18 Urine Urobilinogen Negative (Negative) 06/08/20 12:18 Ur Leukocyte Esterase Negative (Negative) 06/08/20 12:18 Blood Type O Positive 06/08/20 12:18 Antibody Screen NEGATIVE 06/08/20 12:18 Diagnostic Findings Left Knee X-ray: left knee series confirm advanced degenerative changes to the left knee, greatest medial compartments and patellofemoral joint, showing joint space narrowing, osteophyte formation and subchondral sclerosis. no acute bony pathology noted.
[~2020-06-22 08:10] MED LIST changes: +ACETAMINOPHEN 500 MG TAB PO SCH; -ADVIN25/60 INH; -ASPI81TA28 PO; +BUPIVACAINE 0.25% 30 ML VIAL ONE; +BUPIVACAINE 0.5 % 5 MG/1 ML PF 10ML VIAL ONE; +CEFAZOLIN 2000MG 2,000 MG/15 ML SYR IV SCH; -CYAN1SUB6 SL; -CYCL10TA6 PO; -ETOD500T95 PO; +FAMOTIDINE 20 MG TAB PO SCH; -FRS/40 PO; +GABAPENTIN 600 MG DOSE PO SCH; -HYDR-5688 PO; +LR 500ML BOLUS, THEN 15ML/HR IV SCH; -METH4PAK PO; +METOCLOPRAMIDE HCL 10 MG TABLET PO SCH; -MISCCAP80 PO; -PANT1TAB48 PO; -PRM/625 PO; -PRVHFAIN INH; +ROPIVACAINE 0.5% HCL/PF 150 MG, BUPIVACAINE 0.5% MPF 30 ML, EPINEPHrine 30MG/30ML (OR U... INFIL SCH; +TRANEXAMIC ACID 1,000 MG **IV Intra-op IV SCH; +TRANEXAMIC ACID 1,000 MG **IV Pre-op IV SCH; -WLLSR150 PO; -ZNTT/150 PO; +dexAMETHasone 4 MG TAB PO SCH
--- NOTE | 2020-06-22 08:49 | History & Physical Bridge Note ---
Date of Service June 22, 2020 History & Physical Bridge Note I have examined the patient, reviewed the History & Physical and in the interval since the performance of the History & Physical I have noted the following changes of clinical significance: no changes noted
[2020-06-22] MEDS ORDERED: MIDAZOLAM HCL 1 MG/ML 2ML VIAL ONE ×2 (09:23→11:06)
[2020-06-22] MEDS ORDERED: fentaNYL citrate 100 MCG/2 ML VIAL ONE (09:23)
[2020-06-22] MEDS ORDERED: ONDANSETRON INJ 2 MG/ML 2 ML VIAL ONE ×2 (10:21→10:34)
[2020-06-22] MEDS ORDERED: DEXAMETHASONE SOD INJ 4 MG/ML VIAL ONE (10:21)
[2020-06-22] MEDS ORDERED: PROPOFOL IV EMULSION 10 MG/ML 20 ML VIAL IV ONE (10:21)
[2020-06-22] MEDS ORDERED: ONDANSETRON INJ 2 MG/ML 2 ML VIAL IV PRN ×2 (10:30→15:30)
[2020-06-22] MEDS ORDERED: ATROPINE SULFATE 0.1 MG/ML 10ML SYR IV PRN (10:30)
[2020-06-22] MEDS ORDERED: ePHEDrine sulfate 50 MG/ML AMP IV PRN (10:30)
[2020-06-22] MEDS ORDERED: fentaNYL citrate 100 MCG/2 ML VIAL IV PRN (10:30)
[2020-06-22] MEDS ORDERED: LIDOCAINE HCL 2% 2 ML VIAL/AMP(20MG/ML) INFIL ONE (10:34)
[2020-06-22] MEDS ORDERED: ORTHO JOINT ANESTHETIC ONE (10:35)
[2020-06-22] MEDS ORDERED: BACITRACIN INJ 50,000 UNIT VIAL ONE (10:35)
[2020-06-22] MEDS ORDERED: ePHEDrine sulfate 50 MG/ML SYR ONE (11:14)
--- NOTE | 2020-06-22 11:58 | Operative Report ---
Post Operative Report Pre & Post Diagnosis Operation Date: 06/22/20 10:20 Pre-Op Diagnosis: Osteoarthritis Left Knee Post-Op Diagnosis: Osteoarthritis Left Knee I identified the patient and participated in the time-out.: Yes Procedure Operation Date: 06/22/20 10:20 Actual Procedures p Left Total Knee Arthroplasty(Left) utilizing [employer] journey to non- block total knee arthroplasty size 4 femur 3 tibia 9 polyethylene 29 oval patella- Torito Mendoza DO Surgeon Torito Mendoza DO Capacity Analyst Dylan TAVAREZ Estimated Blood Loss 5 Findings Consistent with Post-Op Diagnosis Patient presents severe end-stage tricompartmental degenerative joint disease left knee failed times conservative management patient noted to have marginal osteophyte subchondral sclerosis eburnated [id number] varus alignment 6 degree flexion contracture with a moderate to large effusion no response to conservative management Specimens Bone and cartilage Drains Medium bore Hemovac Anesthesia Type MAC Spinal Regional Complications none Disposition Accompanied Patient To Recovery: No Disposition: Recovery Room Indications Patient presents with severe end-stage tricompartmental degenerative joint disease above intraoperative findings patient fell attempted conservative management with physical therapy Visco supplementation corticosteroid injections relative rest activity modification presents for left total knee arthroplasty Description of Procedure After proper prepping and draping of the left lower extremity anterior midline incision was made over the region of the extensor extensor mechanism after meticulous hemostasis was obtained and maintained in subcutaneous tissues a medial parapatellar incision was made The patella was subluxed lateralward the medial lateral gutter were cleaned from any hypertrophic synovitis and scar tissue of the distal femoral block was placed and the distal femoral osteotomy cut was made subsequently the chamfers anterior and posterior osteotomy cuts were made utilizing the 4-in-1 block the tibia was subsequently subluxed anteriorward medial and ateral meniscal remnants were excised in their entirety remnants of the anterior and posterior cruciate ligaments were excised in their entirety excellent exposure of the proximal tibia was obtained the tibial osteotomy guide was placed on the proximal tibial osteotomy cut was made once again the knee was irrigated with copious amounts of sterile saline solution the patella was subsequently everted lateralward thickened scar tissue around the patella was removed the patella was subsequently cut utilizing a freehand technique and was drilled prepared for final preparation and placement of rasmussen lla socially flexion-extension gaps were checked and the equal and symmetric trials were placed to the appropriate femoral and tibial trials with poly-spacer being placed for equal flexion and extension gaps and full range of motion including extension to 0 and flexion to 140 the trial components after having been taken to recovery range of motion was subsequently removed meticulous hemostasis was obtained and maintained subsequently a knee block injection of joint cocktail including ropivacaine 0.5% 150 mg. Bupivacaine 0.5% epinephrine 1-200,030 mL's toradol 30 mg dexamethasone 4 mg ketamine 10 mg clonidine 100 micrograms normal saline solution 30 mg was infiltrated into the soft tissues of the posterior knee medial lateral gutters and periosteal synovium special attention was paid to protect neurovascular structures at all times subsequently trial components having been removed the knee was irrigated with sterile saline solution. debris was removed the proximal tibia was subsequently prepared and was made ready for the placement of the tibial component tibial component was also cemented and tamped into position the femoral component was subsequently placed and cemented in the position the patellar component was subsequently cemented in position because hemostasis once again obtained and maintained wound having been thoroughly irrigated with debridement and debridement lavage was performed as well as a medial parapatellar incision closed with #1 Vicryl in interrupted fashion subcutaneous was closed with #2 Vicryl skin was closed with skin clips. PA-C was necessary for prepping and drapping as well as wound closure of deep fascia Sub cutaneous tissue and skin and was necessary for the case. A sterile compressive dressing was placed patient was taken to recovery in stable condition of report dictated by Reji I attest to the content of the Intraoperative Record and any orders documented therein. Any exceptions are noted below. I attest to the content of the Intraoperative Record and any orders documented therein. Any exceptions are noted below.
--- NOTE | 2020-06-22 13:18 | XRay Report ---
XR knee LT 1 or 2V routine CLINICAL HISTORY: Postoperative evaluation. COMPARISON: None FINDINGS: Alignment of the total left knee arthroplasty is anatomic. There is no periprosthetic frac ture or unexpected radiopaque foreign body. There are surgical drains. IMPRESSION: Expected findings following total left knee arthroplasty. ACT 112: Negative or not required by law. Electronically signed by: Les Landaverde M.D. 06/22/2020 1:17 PM
--- NOTE | 2020-06-22 14:48 | Anesthesiology Progress Note ---
Date of Service June 22, 2020 Anesthesia Post Procedure Vital Signs Vital Signs: Temp Pulse Pulse Resp BP BP Pulse Ox 06/22/20 14:40 36.6 C 62 18 117/73 96 06/22/20 14:30 72 15 116/77 95 06/22/20 14:20 60 20 119/74 96 06/22/20 14:10 36.5 C 61 18 118/77 96 06/22/20 14:00 73 14 116/72 94 06/22/20 13:50 36.6 C 68 18 110/74 96 06/22/20 13:40 62 14 121/79 97 06/22/20 13:30 63 18 119/78 97 06/22/20 13:20 36.5 C 66 18 127/79 97 06/22/20 13:10 63 17 132/81 97 06/22/20 13:00 75 20 122/81 97 06/22/20 12:51 37.3 C 78 22 126/73 96 06/22/20 09:20 68 16 140/80 98 06/22/20 08:45 36.5 C 72 16 160/86 H 99 Transfer of Care Handoff Completed per policy Notes Mental Status: alert / awake / arousable and participated in evaluation Nausea / Vomiting: adequately controlled Pain: adequately controlled Airway Patency, RR, SpO2: stable & adequate BP & HR: stable & adequate Hydration State: stable & adequate Neuraxial Anesthesia: was administered and sensory block is resolving Anesthetic Complications: no major complications apparent and Pt Satisfied with anesthetic care
[2020-06-22] MEDS ORDERED: bisacodyL 10 MG SUPP PR PRN (15:30)
[2020-06-22] MEDS ORDERED: ALBUTEROL HFA 8 GM INHALER INH PRN (15:30)
[2020-06-22] MEDS ORDERED: MAGNESIUM HYDROXIDE SUSP 30 ML UDC PO PRN (15:30)
[2020-06-22] MEDS ORDERED: NALOXONE HCL 0.4 MG/1 ML VIAL/CARP IV PRN (15:30)
[2020-06-22] MEDS: SODIUM CHLORIDE 0.9% 1000ML 1,000 ML IV SCH (15:47)
[2020-06-22] MEDS: FERROUS GLUCONATE 324 MG TAB PO SCH (17:16)
[2020-06-22] MEDS: ACETAMINOPHEN 500 MG TAB PO SCH (17:17)
[2020-06-22] MEDS: CEFAZOLIN 2000MG 2,000 MG/15 ML SYR IV SCH (19:44)
[2020-06-22] MEDS: ASPIRIN 81 MG ECTAB PO SCH (20:49)
[2020-06-22] MEDS: FAMOTIDINE 40 MG TABLET PO SCH (20:50)
[2020-06-22] MEDS: CeleBREX 200 MG CAP PO SCH (20:50)
[2020-06-22] MEDS: BuPROPion SR 150 MG TABCR PO SCH (20:51)
[2020-06-22] MEDS: SENNA 8.6 MG TAB PO SCH (20:51)
[2020-06-22] MEDS: DOCUSATE SODIUM 100 MG CAP PO SCH (20:51)
[2020-06-22] MEDS: OXYCODONE HCL IR 5 MG TAB (IMMEDIATE RELEASE) PO PRN (23:47)
[2020-06-23] MEDS: SODIUM CHLORIDE 0.9% 1000ML 1,000 ML IV SCH (01:57)
[2020-06-23] MEDS: CEFAZOLIN 2000MG 2,000 MG/15 ML SYR IV SCH (04:06)
[2020-06-23] MEDS: ACETAMINOPHEN 500 MG TAB PO SCH ×3 (05:41→21:18)
[2020-06-23 06:55] LABS: Hematocrit (blood only) 37.2 % (37-47); Hemoglobin 11.7 g/dL (12.0-16.0); Mean Corpuscular Hemoglobin 28.5 pg (25-34); Mean Corpuscular Hgb Conc 31.5 g/dL (32-36); Mean Corpuscular Volume 90.5 fL (80-100); Mean Platelet Volume 10.5 fL (7.4-10.4); Platelet Count 191 K/uL (130-400); RDW Coefficient of Variation 14.3 % (11.5-14.5); RDW Standard Deviation 47.6 fL (36.4-46.3); Red Blood Count 4.11 M/uL (4.2-5.4); White Blood Count 8.61 K/uL (4.8-10.8)
[2020-06-23 07:22] LABS: BUN Creatinine Ratio 15.2 (10-20); Calcium 8.4 mg/dl (8.5-10.1); Creatinine Clr Calc Pharmacy 91.6 ml/min; Est GFR (African American) 87.6; Est GFR (Non-African American) 75.6
--- NOTE | 2020-06-23 07:32 | Orthopedic Progress Note ---
Date of Service June 23, 2020 Assessment & Plan (1) History of total left knee replacement: POD #1 s/p Left TKA pt/ot dvt proph with GELACIO/SCD/ASA plan for d/c home with OPPT, likely on Saturday Admission and Anticipated Discharge Date Admission Date: June 22, 2020 Subjective POD #1 s/p Left TKA Review of Systems Constitutional: no fever, no chills and no sweats Respiratory: no cough and no dyspnea Cardiovascular: no chest pain and no dyspnea Gastrointestinal: no abdominal pain, no nausea and no vomiting Physical Exam Physical Exam: Vital Signs Temp 36.5 C 06/23/20 07:30 Pulse 65 06/23/20 07:30 Resp 16 06/23/20 07:30 BP 144/83 H 06/23/20 07:30 Pulse Ox 96 06/23/20 07:30 Intake & Output 06/22/20 06/23/20 06/23/20 18:59 06:59 18:59 Intake Total 1200 / 3297.667 2097.667 / 3297.66 7 Output Total 40 / 1015 975 / 1015 Balance 1160 / 2282.667 1122.667 / 2282.66 7 Weight 107 kg Intake: IV 700 / 2161.667 1461.667 / 2161.66 7 Lr 1,000 ml @ 15 mls/hr IV . 500 / 500 Q24H [facility] Rx#:[id number] Nss 1000ML 1,0 00 ml @ 100 mls/ 1461.667 / 1461.66 7 hr IV .Q10H [facility] Rx#:[id number] TRANEXAMIC ACI D / 0.7% NACL 1, 200 / 200 000 mg In 100 ml @ 600 mls/hr IV TODAY@0600 [facility] Rx#:[id number] IV Perioperative 500 / 500 Oral 636 / 636 Output: Urine 725 / 725 Estimated Blood Loss 10 / 10 Drain Output 30 / 280 250 / 280 Left Knee Hemo vac #1 30 / 280 250 / 280 Other: Weight Measureme nt Method Standing Scale Constitutional: WD/WN, vitals as above no acute distress Musculoskeletal: Left Leg: NVDI, calf SNT, negative robby sign. DP palpable, able to wiggle toes/ankle movement without difficulty. dressing clean dry and intact. Results & Data ([facility]) Vital Signs (Past 12 Hours) Vital Signs Temp Pulse Resp BP Pulse Ox 06/23/20 07:30 36.5 C 65 16 144/83 H 96 06/23/20 04:09 36.8 C 63 15 98/60 L 95 06/23/20 00:18 36.3 C L 86 14 107/68 94 Laboratory Results Laboratory Results WBC 8.61 K/uL (4.8-10.8) 06/23/20 06:33 RBC 4.11 M/uL (4.2-5.4) L 06/23/20 06:33 Hgb 11.7 g/dL (12.0-16.0) L 06/23/20 06:33 Hct 37.2 % (37-47) 06/23/20 06:33 MCV 90.5 fL (80-100) 06/23/20 06:33 MCH 28.5 pg (25-34) 06/23/20 06:33 MCHC 31.5 g/dL (32-36) L 06/23/20 06:33 RDW Std Deviation 47.6 fL (36.4-46.3) H 06/23/20 06:33 RDW Coeff of Rhett 14.3 % (11.5-14.5) 06/23/20 06:33 Plt Count 191 K/uL (130-400) 06/23/20 06:33 MPV 10.5 fL (7.4-10.4) H 06/23/20 06:33 Immature Gran % (Auto) 0.3 % 06/08/20 12:18 Neut % (Auto) 55.5 % 06/08/20 12:18 Lymph % (Auto) 28.7 % 06/08/20 12:18 Nelson % (Auto) 11.3 % 06/08/20 12:18 Eos % (Auto) 2.9 % 06/08/20 12:18 Baso % (Auto) 1.3 % 06/08/20 12:18 Neut # (Auto) 2.11 K/uL (1.4-6.5) 06/08/20 12:18 Lymph # (Auto) 1.09 K/uL (1.2-3.4) L 06/08/20 12:18 Nelson # (Auto) 0.43 K/uL (0.11-0.59) 06/08/20 12:18 Eos # (Auto) 0.11 K/uL (0-0.5) 06/08/20 12:18 Baso # (Auto) 0.05 K/uL (0-0.2) 06/08/20 12:18 Immature Gran # (Auto) 0.01 K/uL (0.00-0.02) 06/08/20 12:18 PT 10.4 Seconds (9.0-12.0) 06/08/20 12:18 INR 1.0 (0.9-1.1) 06/08/20 12:18 APTT 25.8 Seconds (21.0-31.0) 06/08/20 12:18 PTT Ratio 0.9 06/08/20 12:18 Sodium 142 mmol/L (136-145) 06/23/20 06:33 Potassium 4.0 mmol/L (3.5-5.1) 06/23/20 06:33 Chloride 112 mmol/L (98-107) H 06/23/20 06:33 Carbon Dioxide 26 mmol/L (21-32) 06/23/20 06:33 Anion Gap 4.0 (3-11) 06/23/20 06:33 BUN 13 mg/dl (7-18) 06/23/20 06:33 Creatinine 0.83 mg/dl (0.6-1.2) 06/23/20 06:33 Est Cr Clr Drug Dosing 91.6 ml/min 06/23/20 06:33 Est GFR ( Amer) 87.6 06/23/20 06:33 Est GFR (Non-Af Amer) 75.6 06/23/20 06:33 BUN/Creatinine Ratio 15.2 (10-20) 06/23/20 06:33 Glucose 98 mg/dl (70-99) 06/23/20 06:33 Estimat Average Glucose 103 mg/dl 06/08/20 12:18 Hemoglobin A1c 5.2 % (4.5-5.6) 06/08/20 12:18 Calcium 8.4 mg/dl (8.5-10.1) L 06/23/20 06:33 Albumin 3.4 gm/dl (3.4-5.0) 06/08/20 12:18 Urine Color Yellow 06/08/20 12:18 Urine Appearance Clear (Clear) 06/08/20 12:18 Urine pH 5.5 (4.5-7.5) 06/08/20 12:18 Ur Specific Victor 1.014 (1.000-1.030) 06/08/20 12:18 Urine Protein Negative (Negative) 06/08/20 12:18 Urine Glucose (UA) Negative (Negative) 06/08/20 12:18 Urine Ketones Negative (Negative) 06/08/20 12:18 Urine Blood Negative (Negative) 06/08/20 12:18 Urine Nitrite Negative (Negative) 06/08/20 12:18 Urine Bilirubin Negative (Negative) 06/08/20 12:18 Urine Urobilinogen Negative (Negative) 06/08/20 12:18 Ur Leukocyte Esterase Negative (Negative) 06/08/20 12:18 Blood Type O Positive 06/08/20 12:18 Antibody Screen NEGATIVE 06/08/20 12:18 Diagnostic Findings XR knee LT 1 or 2V routine CLINICAL HISTORY: Postoperative evaluation. COMPARISON: None FINDINGS: Alignment of the total left knee arthroplasty is anatomic. There is no periprosthetic fracture or unexpected radiopaque foreign body. There are surgical drains. IMPRESSION: Expected findings following total left knee arthroplasty.
[2020-06-23] MEDS: OXYCODONE HCL IR 5 MG TAB (IMMEDIATE RELEASE) PO PRN ×4 (08:02→21:18)
[2020-06-23] MEDS: BuPROPion SR 150 MG TABCR PO SCH ×2 (08:03→21:17)
[2020-06-23] MEDS: DOCUSATE SODIUM 100 MG CAP PO SCH ×2 (08:04→21:17)
[2020-06-23] MEDS: CeleBREX 200 MG CAP PO SCH ×2 (08:04→21:17)
[2020-06-23] MEDS: FERROUS GLUCONATE 324 MG TAB PO SCH ×2 (08:05→16:15)
[2020-06-23] MEDS: ASPIRIN 81 MG ECTAB PO SCH ×2 (08:05→21:17)
[2020-06-23] MEDS: MULTIVITAMIN TAB PO SCH (08:06)
[2020-06-23] MEDS: TORSEMIDE 20 MG TAB PO SCH ×2 (08:06→10:50)
[2020-06-23] MEDS: PANTOprazole 40 MG TAB PO SCH (08:07)
[2020-06-23] MEDS: LACTOBACILLUS ACIDOPHILUS (FLORANEX) TAB PO SCH (08:07)
[2020-06-23] MEDS: SENNA 8.6 MG TAB PO SCH (21:18)
[2020-06-23] MEDS: FAMOTIDINE 40 MG TABLET PO SCH (21:18)
[2020-06-24] MEDS: OXYCODONE HCL IR 5 MG TAB (IMMEDIATE RELEASE) PO PRN ×2 (03:22→12:47)
[2020-06-24] MEDS: ACETAMINOPHEN 500 MG TAB PO SCH (06:03)
[2020-06-24] MEDS: ASPIRIN 81 MG ECTAB PO SCH (08:03)
[2020-06-24] MEDS: TORSEMIDE 20 MG TAB PO SCH (08:04)
[2020-06-24] MEDS: BuPROPion SR 150 MG TABCR PO SCH (08:04)
[2020-06-24] MEDS: LACTOBACILLUS ACIDOPHILUS (FLORANEX) TAB PO SCH (08:04)
[2020-06-24] MEDS: CeleBREX 200 MG CAP PO SCH (08:04)
[2020-06-24] MEDS: DOCUSATE SODIUM 100 MG CAP PO SCH (08:04)
[2020-06-24] MEDS: FERROUS GLUCONATE 324 MG TAB PO SCH (08:05)
[2020-06-24] MEDS: PANTOprazole 40 MG TAB PO SCH (08:05)
[2020-06-24] MEDS: MULTIVITAMIN TAB PO SCH (08:05)
--- NOTE | 2020-06-24 09:12 | Orthopedic Progress Note ---
Date of Service June 24, 2020 Assessment & Plan (1) History of total left knee replacement: POD #2 s/p Left TKA pt/ot dvt proph with GELACIO/SCD/ASA plan for d/c home with OPPT today Admission and Anticipated Discharge Date Admission Date: June 22, 2020 Subjective POD 2 Pt ambulating to the BR with walker independently. Feels she is doing well. States she's been walking back and forth in her room without difficulty. Denies SOB,CP,LH. Having some pain but tolerating. Planning for dc today. Physical Exam Physical Exam: Incision is C/D/I. Slight amount of erythema over the medial aspect of the knee that is NT. Calves are soft,NT. NV intact. Toes mobile. Results & Data ([facility]) Vital Signs (Past 12 Hours) Vital Signs Temp Pulse Resp BP Pulse Ox 06/24/20 06:38 36.4 C L 63 16 120/78 93 06/23/20 23:31 36.7 C 77 16 117/71 93
--- NOTE | 2020-06-30 11:48 | Discharge Summary ---
Date of Service June 30, 2020 Admission HPI Per Admitting Provider Gabbie is a 60 year old female who complains of left knee pain, presents for pre-op evaluation prior to a left total knee replacement by dr Mendoza at [facility]. She complains of pain and decreased range of motion in her left knee. she states that her symptoms occur constantly with intermittent worsening. Currently the patient states that the symptoms are moderate-severe. The pain is described as aching, sharp and throbbing. her symptoms are aggravated by ascending stairs, daily activities, first steps while awake walking. Prior NSAIDs include IBU, Aleve and Mobic, had adverse rxn to Mobic. she has been treated with previous cortisone and visco injections in the past without much relief. Admission Exam Per Admitting Provider Physical Exam: HT: 5ft 9in Wt: 107.5kg BP: 128/68 Constitutional: WD/WN, vitals as above no acute distress Respiratory: normal respiratory effort, lungs clear to auscultation no respiratory distress, no labored breathing and does not use accessory muscles Cardiovascular: RRR, no murmur, no edema Gastrointestinal (Abdomen): normal bowel sounds, soft, nontender, no hepatosplenomegaly Musculoskeletal: Knee: + knee abnormal to inspection (left knee), + effusion (+1 effusion), + limited ROM of knee (ROM 0/3/110), + knee ROM with crepitation, + joint line tenderness (medial joint line) and + Lottie's sign positive; no deformity, no skin erythema, no ecchymosis, no valgus laxity, no varus laxity, anterior drawer test negative, Fredy's sign negative and pivot shift test negative Principal Diagnosis Left Knee Djd Discharge Exam Physical Exam: Incision is C/D/I. Slight amount of erythema over the medial aspect of the knee that is NT. Calves are soft,NT. NV intact. Toes mobile. Results & Data ([facility]) Vital Signs (Past 12 Hours) Vital Signs Temp Pulse Resp BP Pulse Ox 06/24/20 06:38 36.4 C L 63 16 120/78 93 06/23/20 23:31 36.7 C 77 16 117/71 93 Discharge Data Allergies Allergy/AdvReac Type Severity Reaction Status Date / Time meloxicam [From Mobic] Allergy Mild retain Verified 06/22/20 08:37 fluid swelling elderberry pills AdvReac Mild made her Uncoded 06/22/20 08:38 "go crazy" Consultations 06/22/20 15:30 Consult Case Management - Discharge Planning Routine Procedures Performed Operation Date: 06/22/20 10:20 Actual Procedures p Left Total Knee Arthroplasty(Left) - Torito Mendoza DO Ordered Studies 06/22/20 05:00 US - OR guided needle placemen Routine Hospital Course (1) Arthritis of knee, left: Patient was admitted on the above-noted date and had the above-noted surgery performed which she tolerated well.On her first postoperative day, she was without complaints. Pain was controlled she denied shortness of breath, chest pain, lightheadedness. Vital signs are stable and she was afebrile. Dressings were clean, dry, and intact. Neurovascular is intact. Toes are mobile. Hemoglobin was 11.7. She was started on PT and OT protocols. Continued on DVT prophylaxis and pain management. By her second postoperative day, she was ambulating to the bathroom with a walker independently. She felt she was doing well. She has been walking back and forth in her room without difficulty. She had no complaints, pain was controlled. Incision was clean, dry, and intact. A slight amount of erythema was noted over the medial aspect of the knee that was nontender. Calves were soft and nontender. Neurovascular is intact. Vital signs are stable and she was afebrile. She was progressing well with her physical therapy and remaining stable and it was felt that she be discharged home with outpatient PT. Total Time Total Time Spent Total Time Spent (In Minutes): 5 Discharge Plan Discharge Items Patient Disposition: Home - Self-Care Reason For Visit: Osteoarthritis Left Knee Discharge Diagnosis: Osteoarthritis Left Knee Activity: Per Instructions section Weightbearing: Left weightbearing Weightbearing Comment: as tolerated with walker Non-emergency contact: Surgeon Call non-emergency contact if: your pain is not controlled, your temperature is above 101.5, your wound has increased redness and your wound has increased drain age Follow-up/Referrals: Kenneth Rhodes DO [Primary Care Provider] - Diet: Regular Addtl Attending Provider Instructions: ACTIVITY RECOMMENDATIONS: SELF CARE INSTRUCTIONS AFTER TOTAL KNEE REPLACEMENT A. You may need to continue a physical therapy program after discharge from the hospital. There are several options available to you. Your doctor will assist you in selecting the best one for you. 1. An out-patient facility 2 to 3 times a week for therapy or home therapy. 2. Continue working on all exercises taught to you in the hospital. Your goals should be to increase bending of your knee to 90 degrees and beyond and to fully straighten your knee. B. You may progress at your own pace from walking with a walker or crutches to a cane; then to no assistive devices. C. Make walking a part of your daily routine. Be up as much as comfortable with rest periods throughout the day. Rest with leg elevation is very important. Use the ice wrap frequently for the first 3-4 weeks. D. There are no restrictions on activities. You may ride in a car, shop, participate in test director and all social activities. E. Wear the long elastic stockings (GELACIO hose) 20 hours a day for 2 weeks after surgery. They can be removed several times a day for laundering and for a bath. F. You may shower, no tub baths until cleared by your doctor. SPECIAL CARE INSTRUCTIONS: VERY IMPORTANT TO READ AND REVIEW A. There are a few signs you need to watch for after you are home. Call [facility] if you notice any of the followin. Increased severe knee pain. Some pain is expected especially when you exercise. 2. Increased swelling in your leg or knee; pain or swelling of the calf muscle in either lower leg. 3. Any fluid drainage from the incision. 4. Shortness of breath or chest pain. B. Please call [facility] at if you have any concerns or questions about your operation or recovery. The doctor or his nurse will return your call promptly. C. You must take antibiotics before dental work, bladder, bowel or other surgery. Your doctor will provide you with a permanent care to carry describing this precaution. IMPORTANT: * REMEMBER TO TAKE ASPIRIN, 81 MG, TWICE DAILY FOR 4 WEEKS UNLESS OTHERWISE DIRECTED. THIS IS YOUR BLOOD THINNER. * CALL IF INCREASED PAIN, REDNESS, DRAINAGE OR FEVER GREATER THAT 101. * WEAR GELACIO HOSE 20 HOURS PER DAY FOR 2 WEEKS. * DERMABOND Prineo- This is a mesh tape dressing that is covered with glue. It should remain in place until the incision is properly healed, usually 10-14 days. This dressing is designed to naturally slough off. You may trim the excess mesh tape as it peels off. Incision may be briefly wet in a shower. Dry immediately by blotting with a clean, dry towel. Do not bath or swim until instructed by your doctor. Do not scratch, rub, or pick at the dressing. Do not apply any topical ointments or lotions until dressing is completely removed and/or instructed by your doctor. There may be a small piece of suture material at one end of your incision. Do not pull or trim this. If it is bothersome or catching on clothing, you may cover it with a band-aid. Call the office with any wound or dressing questions. . FOLLOW UP VISIT: If appointment is not already scheduled: Please call [facility] to make a follow-up appointment for 2 weeks after your surgery at . Stand-Alone Forms: My [facility] [employer], Smoking Cessation Medications and DC Order Prescriptions: New aspirin 81 mg Tablet,Delayed Release (Dr/Ec) 81 mg PO BID 30 Days Qty: 60 RF: 0 acetaminophen 500 mg Tablet 1,000 mg PO Q8 14 Days Qty: 84 RF: 0 polyethylene glycol 3350 [Miralax] 17 gram powder in packet 17 g PO DAILY PRN (Reason: constipation) Qty: 5 RF: 0 cefadroxil 500 mg capsule 500 mg PO BID Qty: 14 RF: 0 oxycodone 5 mg Tablet 5 mg PO Q4H MDD 6 PRN (Reason: pain) Qty: 30 RF: 0 Continued celecoxib [Celebrex] 200 mg Capsule 200 mg PO BID RF: 0 bupropion HCl [Wellbutrin SR] 150 mg Tablet Sustained-Release 12 Hr 150 mg PO BID RF: 0 torsemide 20 mg Tablet 20 mg PO QAM RF: 0 famotidine [Pepcid] 40 mg Tablet 40 mg PO HS RF: 0 cyanocobalamin (vitamin B-12) [Vitamin B-12] 500 mcg Tablet 500 mcg PO QAM RF: 0 pantoprazole 40 mg Tablet,Delayed Release (Dr/Ec) 40 mg PO QAM RF: 0 albuterol sulfate [Ventolin HFA] 90 mcg/actuation Hfa Aerosol Inhaler 2 puff INHALATION 6XD PRN (Reason: sob) RF: 0 cholecalciferol (vitamin D3) [Vitamin D3] 125 mcg (5,000 unit) Tablet 125 mcg PO QAM RF: 0 Probiotic 3 billion cell Capsule 3,000 mmu cells PO QAM RF: 0 Discontinued aspirin 81 mg Tablet,Delayed Release (Dr/Ec) 81 mg PO QAM RF: 0 Premarin 0.625 mg Tablet 0.625 mg PO QAM RF: 0 Discharge Orders: Discharge Order (Routine); Ordered 06/24/20 Ordered By: Dylan Murray Admission Data Admit Date/Time: 06/22/20 12:56 Attending Provider: Torito Mendoza Admit Provider: Torito Mendoza Primary Care Provider: Kenneth Rhodes Other Interventions: Discharge Summary Assessment (RN) Last Done: 06/24/20 10:14
== END 2020-06-24 13:34 | disposition home or self-care (01) ==
LOC: 3N 08:10 → ASU 08:10
DX: Z79.899 Other long term (current) drug therapy; I10 Essential (primary) hypertension; Z91.013 Allergy to seafood; K21.9 Gastro-esophageal reflux disease without esophagitis; Z79.82 Long term (current) use of aspirin; J45.909 Unspecified asthma, uncomplicated; Z91.012 Allergy to eggs; F41.9 Anxiety disorder, unspecified; M17.12 Unilateral primary osteoarthritis, left knee